=== PATIENT | female | born 1950 | race Caucasian/White ===

== ENCOUNTER → 2016-08-12 | Outpatient (CLI) | payer OTHER, BC ==
--- NOTE | 2016-08-13 12:36 | MAMMOGRAPHY REPORT ---
BILATERAL DIGITAL SCREENING MAMMOGRAM WITH CAD: 08/12/2016 CLINICAL HISTORY: Routine screening. Patient has no complaints. TECHNIQUE: Current study was also evaluated with a Computer Aided Detection (CAD) system. Bilatera l CC and MLO views were obtained. COMPARISON: Comparison is made to exams dated: 09/19/2008, 09/10/2008, and 09/10/2008. BREAST COMPOSITION: The tissue of both breasts is heterogeneously dense, which may obscure small ma sses. FINDINGS: There is a possible obscured 10 mm mass seen within the left 6:00 breast. Additionally, there are asymmetries seen within the right superior breast on the MLO view and the right slightly l ateral breast on the cc view. Recommend spot compression tomosynthesis views and possible breast ul trasound for further evaluation. The remainder of both breasts are stable compared to prior exams, without suspicious masses, calcifi cations, or areas of architectural distortion noted. IMPRESSION: ACR BI-RADS CATEGORY 0: INCOMPLETE EVALUATION: NEED ADDITIONAL IMAGING EVALUATION Right breast asymmetries and left breast mass, for which additional imaging evaluation is recommende d. The patient will be called to schedule an appointment. Approximately 10% of breast cancers are not detected with mammography. A negative mammographic repor t should not delay biopsy if a clinically suggestive mass is present. Tania De Los Santos M.D. ah/:08/12/2016 16:59:58 [employer] Automatic: Gail CAMILO(R)(M), [facility] letter sent: Addl Imaging 0 BI-RADS Code: ACR BI-RADS Category 0: Incomplete Evaluation: Need Additional Imaging Evaluation
== END | disposition home or self-care (01) ==
LOC: C.MAMM 14:29
PROVIDERS: ATTEND Family Medicine
DX: Z12.31 Encounter for screening mammogram for malignant neoplasm of breast (principal); N64.89 Other specified disorders of breast

== ENCOUNTER → 2016-09-03 | Outpatient (CLI) | payer OTHER, BC ==
--- NOTE | 2016-09-03 15:41 | MAMMOGRAPHY REPORT ---
BILATERAL DIGITAL DIAGNOSTIC MAMMOGRAM TOMOSYNTHESIS AND TARGETED BILATERAL ULTRASOUND: 09/03/2016 CLINICAL HISTORY: Callback from screening mammogram for right breast asymmetry and left breast mass. TECHNIQUE: Breast tomosynthesis in addition to standard 2D mammography was performed. Spot rock bryan bilateral CC and MLO 2-D and tomosynthesis images were obtained. COMPARISON: Comparison is made to exams dated: 08/12/2016 mammogram - [facility], 09/19/2008, 09/10/2008, and 09/10/2008. BREAST COMPOSITION: There are scattered areas of fibroglandular density in both breasts. FINDINGS: Spot compression views of the right breast demonstrate a lobulated circumscribed 8 mm mas s seen within the right 12:00 breast, which corresponds with the asymmetries seen on the cc view on the screening mammogram. The asymmetry seen within the right superior breast on the MLO view has th e appearance of normal fibroglandular tissue on the spot compression views. The previously describe d mass within the left inferior breast is shown to be located within the skin on the tomosynthesis i mages. An incidentally noted oval circumscribed 5 mm mass is seen within the left 6:00 breast on th e tomosynthesis images. Targeted ultrasound was performed of the right breast in the region of the mammographic mass. In th e right breast at 11:30, 3 cm from the nipple, there is an oval lobulated circumscribed mass which i s predominately anechoic and contain thin internal septations although one portion is slightly echog enic internally. This corresponds with the mammographic mass and is probably benign and likely repr esents a cyst cluster. In the left breast at 6:00, 5 cm from the nipple, there is an oval circumscr ibed anechoic mass which measures 4 x 3 x 4 mm. This corresponds with the incidental mammographic m ass and is consistent with a benign simple cyst. Clinical exam of the left breast shows an oval ski n lesion in the left breast at approximately 5:00 which corresponds with the 10 mm mammographic mass . IMPRESSION: ACR-BI-RADS CATEGORY 3: PROBABLY BENIGN, TARGETED ULTRASOUND ACR-BI-RADS CATEGORY 3: [place] OBABLY BENIGN 1. Lobulated 10 mm mass in the right breast at 11:30 on ultrasound, which corresponds with the mamm ographic mass and is probably benign and likely represents a cyst cluster. Recommend follow-up diag nostic tomosynthesis mammograms and possible ultrasound of the right breast in 6 months to reevaluat e. 2. The mammographic mass in the left breast corresponds with a benign skin lesion. An incidental b enign 4 mm cyst is seen within the left breast at 6:00. The patient has been verbally notified of the results. Approximately 10% of breast cancers are not detected with mammography. A negative mammographic repor t should not delay biopsy if a clinically suggestive mass is present. Tania De Los Santos M.D. 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
== END | disposition home or self-care (01) ==
LOC: C.MAMM 14:01
PROVIDERS: ATTEND Family Medicine
DX: N64.89 Other specified disorders of breast (principal); N63 Unspecified lump in breast